=== PATIENT | female | born 1995 | race Caucasian/White ===

== ENCOUNTER 2017-07-10 07:48 | Emergency (ER) | payer OTHER ==
[2017-07-10] MEDS: ACETAMINOPHEN 325 MG TAB PO (08:48)
[2017-07-10 09:03] LABS: ADD MAN DIFF? NO
[2017-07-10 09:29] LABS: BASOPHIL # 0.1 10^3/ul (0.0-0.1); BASOPHILS % 0.5 % (0.0-2.0); EOSINOPHILS # 0.2 10^3/ul (0.0-0.5); EOSINOPHILS % 1.4 % (0.0-7.0); HEMATOCRIT 35.2 % (37.0-47.0); HEMOGLOBIN 10.7 g/dl (12.0-16.0); LYMPHOCYTES # 2.3 10^3/ul (0.8-2.9); LYMPHOCYTES % 20.7 % (15.0-51.0); MEAN CORPUSCULAR HEMOGLOBIN 21.7 pg (29.0-33.0); MEAN CORPUSCULAR HGB CONC 30.4 g/dl (32.0-37.0); MEAN CORPUSCULAR VOLUME 71.4 fl (82.0-101.0); MEAN PLATELET VOLUME 10.1 fl (7.4-10.4); MONOCYTE # 0.7 10^3/ul (0.3-0.9); MONOCYTES % 6.7 % (0.0-11.0); NEUTROPHIL # 7.7 10^3/ul (1.6-7.5); NEUTROPHILS % 70.3 % (39.0-77.0); PLATELET COUNT 397 10^3/UL (140-415); RED BLOOD COUNT 4.93 10^6/ul (4.20-5.40); RED CELL DISTRIBUTION WIDTH 21.8 % (11.5-14.5)
[2017-07-10 09:46] LABS: ADD UMIC YES; UR ASCORBIC ACID NEGATIVE (NEGATIVE); UR BACTERIA FEW /HPF (NONE SEEN); UR BILIRUBIN (Dip) NEGATIVE (NEGATIVE); UR BLOOD (Dip) NEGATIVE (NEGATIVE); UR CLARITY CLOUDY (CLEAR); UR COLOR YELLOW (YELLOW); UR GLUCOSE (Dip) NEGATIVE (NEGATIVE); UR KETONES (Dip) NEGATIVE (NEGATIVE); UR LEUKOCYTE ESTERASE (Dip) NEGATIVE Leu/ul (NEGATIVE); UR MUCUS FEW /HPF (NONE SEEN); UR NITRITE (Dip) NEGATIVE (NEGATIVE); UR RBC 1 /HPF (0-5); UR SPECIFIC GRAVITY (Dip) 1.021 (1.003-1.030); UR SQUAMOUS EPITHELIAL CELL MODERATE /HPF (FEW); UR TOTAL PROTEIN (Dip) NEGATIVE (NEGATIVE); UR UROBILINOGEN (Dip) NEGATIVE (NEGATIVE); UR WBC 7 /HPF (0-5)
== END 2017-07-10 11:01 | disposition home or self-care (01) ==
LOC: FTE 07:48
DX: O26.891 Other specified pregnancy related conditions, first trimester (principal); O99.89 Other specified diseases and conditions complicating pregnancy, childbirth and the puerperium; R10.2 Pelvic and perineal pain; M54.9 Dorsalgia, unspecified; Z3A.09 9 weeks gestation of pregnancy
CPT/HCPCS: 36415; 76801; 81001; 84702; 85025; 86900; 86901; 99284-25

== ENCOUNTER 2017-10-29 14:27 | Outpatient (CLI) | payer OTHER ==
[2017-10-29 15:20] LABS: ADD MAN DIFF? NO
[2017-10-29 15:22] LABS: WHITE BLOOD COUNT 9.5 10^3/ul (4.8-10.8)
[2017-10-29 15:22] LABS: BASOPHIL # 0.1 10^3/ul (0.0-0.1); BASOPHILS % 0.5 % (0.0-2.0); EOSINOPHILS # 0.1 10^3/ul (0.0-0.5); EOSINOPHILS % 1.2 % (0.0-7.0); HEMATOCRIT 29.3 % (37.0-47.0); HEMOGLOBIN 9.2 g/dl (12.0-16.0); LYMPHOCYTES # 2.1 10^3/ul (0.8-2.9); LYMPHOCYTES % 22.4 % (15.0-51.0); MEAN CORPUSCULAR HGB CONC 31.4 g/dl (32.0-37.0); MEAN CORPUSCULAR VOLUME 73.3 fl (82.0-101.0); MEAN PLATELET VOLUME 10.1 fl (7.4-10.4); MONOCYTE # 0.7 10^3/ul (0.3-0.9); MONOCYTES % 7.4 % (0.0-11.0); NEUTROPHIL # 6.4 10^3/ul (1.6-7.5); NEUTROPHILS % 67.9 % (39.0-77.0); PLATELET COUNT 308 10^3/UL (140-415); RED CELL DISTRIBUTION WIDTH 17.2 % (11.5-14.5)
[2017-10-29 15:40] LABS: ADD UMIC YES; UR AMORPHOUS CRYSTAL FEW /HPF (NONE SEEN); UR ASCORBIC ACID NEGATIVE (NEGATIVE); UR BILIRUBIN (Dip) NEGATIVE (NEGATIVE); UR BLOOD (Dip) NEGATIVE (NEGATIVE); UR CLARITY CLOUDY (CLEAR); UR COLOR YELLOW (YELLOW); UR GLUCOSE (Dip) NEGATIVE (NEGATIVE); UR KETONES (Dip) NEGATIVE (NEGATIVE); UR LEUKOCYTE ESTERASE (Dip) TRACE Leu/ul (NEGATIVE); UR MUCUS FEW /HPF (NONE SEEN); UR NITRITE (Dip) NEGATIVE (NEGATIVE); UR RBC 1 /HPF (0-5); UR SPECIFIC GRAVITY (Dip) 1.019 (1.003-1.030); UR SQUAMOUS EPITHELIAL CELL MODERATE /HPF (FEW); UR TOTAL PROTEIN (Dip) NEGATIVE (NEGATIVE); UR UROBILINOGEN (Dip) 1+ mg/dL (NEGATIVE); UR WBC 10 /HPF (0-5)
== END 2017-10-29 16:15 | disposition home or self-care (01) ==
LOC: OBT 14:27 → L-D 14:28 → OBT 16:15
DX: O23.42 Unspecified infection of urinary tract in pregnancy, second trimester (principal); Z3A.24 24 weeks gestation of pregnancy
CPT/HCPCS: 76817; 81001; 85025; 87086

== ENCOUNTER 2017-11-22 23:08 | Emergency (ER) | payer OTHER | END 2017-11-23 03:32 | disposition home or self-care (01) | LOC: FTE 23:08 | DX: O99.89 Other specified diseases and conditions complicating pregnancy, childbirth and the puerperium (principal); R42 Dizziness and giddiness; R51 Headache; Z3A.28 28 weeks gestation of pregnancy | CPT/HCPCS: 93005; 99283-25 ==

== ENCOUNTER 2017-11-23 03:40 | Outpatient (CLI) | payer OTHER ==
[2017-11-23] MEDS: LACTATED RINGER'S 1,000 ML IV ×2 (04:41→06:23)
[2017-11-23 04:57] LABS: ADD UMIC YES; UR ASCORBIC ACID NEGATIVE (NEGATIVE); UR BACTERIA FEW /HPF (NONE SEEN); UR BILIRUBIN (Dip) NEGATIVE (NEGATIVE); UR BLOOD (Dip) NEGATIVE (NEGATIVE); UR CALCIUM OXALATE CRYSTAL FEW /HPF (NONE SEEN); UR CLARITY SLIGHTLY CLOUDY (CLEAR); UR COLOR YELLOW (YELLOW); UR GLUCOSE (Dip) NEGATIVE (NEGATIVE); UR KETONES (Dip) NEGATIVE (NEGATIVE); UR LEUKOCYTE ESTERASE (Dip) TRACE Leu/ul (NEGATIVE); UR MUCUS FEW /HPF (NONE SEEN); UR NITRITE (Dip) NEGATIVE (NEGATIVE); UR RBC 1 /HPF (0-5); UR SPECIFIC GRAVITY (Dip) 1.026 (1.003-1.030); UR SQUAMOUS EPITHELIAL CELL MODERATE /HPF (FEW); UR TOTAL PROTEIN (Dip) NEGATIVE (NEGATIVE); UR UROBILINOGEN (Dip) 1+ mg/dL (NEGATIVE); UR WBC 6 /HPF (0-5)
[2017-11-23] MEDS: HYDROCODONE/APAP (5/325) TAB PO (05:09)
[2017-11-23 05:17] LABS: ADD MAN DIFF? NO
[2017-11-23 05:19] LABS: WHITE BLOOD COUNT 10.7 10^3/ul (4.8-10.8)
[2017-11-23 05:19] LABS: BASOPHIL # 0.1 10^3/ul (0.0-0.1); BASOPHILS % 0.5 % (0.0-2.0); EOSINOPHILS # 0.3 10^3/ul (0.0-0.5); EOSINOPHILS % 2.3 % (0.0-7.0); HEMATOCRIT 28.1 % (37.0-47.0); HEMOGLOBIN 8.6 g/dl (12.0-16.0); LYMPHOCYTES # 2.9 10^3/ul (0.8-2.9); LYMPHOCYTES % 27.3 % (15.0-51.0); MEAN CORPUSCULAR HEMOGLOBIN 22.4 pg (29.0-33.0); MEAN CORPUSCULAR HGB CONC 30.6 g/dl (32.0-37.0); MEAN CORPUSCULAR VOLUME 73.2 fl (82.0-101.0); MEAN PLATELET VOLUME 9.4 fl (7.4-10.4); MONOCYTE # 0.9 10^3/ul (0.3-0.9); MONOCYTES % 8.4 % (0.0-11.0); NEUTROPHIL # 6.5 10^3/ul (1.6-7.5); NEUTROPHILS % 60.6 % (39.0-77.0); PLATELET COUNT 322 10^3/UL (140-415); RED BLOOD COUNT 3.84 10^6/ul (4.20-5.40); RED CELL DISTRIBUTION WIDTH 18.1 % (11.5-14.5)
[2017-11-23 05:32] LABS: ALANINE AMINOTRANSFERASE 25 IU/L (13-69); ALBUMIN 3.3 g/dl (3.3-4.9); ALKALINE PHOSPHATASE 122 IU/L (42-121); ANION GAP 12 (8-16); ASPARTATE AMINO TRANSFERASE 15 IU/L (15-46); BILIRUBIN,INDIRECT 0.4 mg/dl (0-1.1); BILIRUBIN,TOTAL 0.4 mg/dl (0.2-1.3); BLOOD UREA NITROGEN 7 mg/dl (7-20); CALCIUM 8.5 mg/dl (8.4-10.2); CARBON DIOXIDE 25 mmol/L (21-31); CHLORIDE 106 mmol/L (97-110); CREATININE 0.38 mg/dl (0.44-1.00); GLUCOSE 91 mg/dl (70-220); POTASSIUM 3.5 mmol/L (3.5-5.1); SODIUM 139 mmol/L (135-144); TOTAL PROTEIN 6.6 g/dl (6.1-8.1)
== END 2017-11-23 07:45 | disposition home or self-care (01) ==
LOC: OBT 03:40 → L-D 03:40 → OBT 07:45
DX: O26.892 Other specified pregnancy related conditions, second trimester (principal); R51 Headache; R42 Dizziness and giddiness; R06.02 Shortness of breath; O21.0 Mild hyperemesis gravidarum; Z3A.28 28 weeks gestation of pregnancy
CPT/HCPCS: 36415; 76815; 76817; 76818; 80053; 81001; 85025; 96360; 96361

== ENCOUNTER 2018-01-07 19:49 | Outpatient (CLI) | payer OTHER ==
[2018-01-07] MEDS ORDERED: TERBUTALINE 1 ML (20:13)
[2018-01-07] MEDS: TERBUTALINE 1 MG/ML INJ SC (20:17)
[2018-01-07] MEDS: LACTATED RINGER'S 1,000 ML IV (20:20)
[2018-01-07 20:49] LABS: ADD UMIC YES; UR ASCORBIC ACID NEGATIVE (NEGATIVE); UR BACTERIA FEW /HPF (NONE SEEN); UR BILIRUBIN (Dip) NEGATIVE (NEGATIVE); UR BLOOD (Dip) NEGATIVE (NEGATIVE); UR CALCIUM OXALATE CRYSTAL FEW /HPF (NONE SEEN); UR CLARITY CLOUDY (CLEAR); UR COLOR YELLOW (YELLOW); UR GLUCOSE (Dip) NEGATIVE (NEGATIVE); UR KETONES (Dip) 1+ mg/dL (NEGATIVE); UR LEUKOCYTE ESTERASE (Dip) 1+ Leu/ul (NEGATIVE); UR MUCUS MODERATE /HPF (NONE SEEN); UR NITRITE (Dip) NEGATIVE (NEGATIVE); UR RBC 17 /HPF (0-5); UR SPECIFIC GRAVITY (Dip) 1.023 (1.003-1.030); UR SQUAMOUS EPITHELIAL CELL FEW /HPF (FEW); UR TOTAL PROTEIN (Dip) 1+ mg/dl (NEGATIVE); UR UROBILINOGEN (Dip) NEGATIVE (NEGATIVE); UR WBC 15 /HPF (0-5)
[2018-01-07] MEDS ORDERED: LACTATED RINGER'S 1,000 ML IV (22:00)
[2018-01-07] MEDS: CEFTRIAXONE 1 GM/50 ML (PMX) 50 ML IVPB (22:06)
[2018-01-07] MEDS: SOD CHLORIDE 0.9% 1,000 ML IV (22:06)
[2018-01-07] MEDS ORDERED: CARBOPROST 250 MCG INJ IM (23:30)
[2018-01-07] MEDS ORDERED: METHYLERGONOVINE 0.2 MG INJ IM (23:30)
[2018-01-07] MEDS ORDERED: OXYTOCIN 30 UNITS/LR 500 ML IV ×2 (23:30)
[2018-01-07] MEDS ORDERED: CEFAZOLIN 2 GM/50 ML (PMX) 50 ML IV (23:30)
[2018-01-07] MEDS ORDERED: MISOPROSTOL 200 MCG TAB PR (23:30)
[2018-01-07] MEDS: HYDROCODONE/APAP (5/325) TAB PO (23:45)
[2018-01-07] MEDS: NIFEdipine 10 MG CAP PO (23:45)
== END 2018-01-08 00:50 | disposition home or self-care (01) ==
LOC: OBT 19:49 → L-D 19:50
DX: O62.9 Abnormality of forces of labor, unspecified (principal); Z3A.34 34 weeks gestation of pregnancy
CPT/HCPCS: 81001; 96360; 96361; 96368; 96372

== ENCOUNTER 2018-01-18 06:04 | Inpatient (IN) | payer OTHER ==
[2018-01-18] MEDS ORDERED: MISOPROSTOL 200 MCG TAB PR ×2 (06:30→14:00)
[2018-01-18] MEDS ORDERED: CEFAZOLIN 2 GM/50 ML (PMX) 50 ML IV (06:30)
[2018-01-18] MEDS ORDERED: METHYLERGONOVINE 0.2 MG INJ IM ×2 (06:30→14:00)
[2018-01-18] MEDS ORDERED: OXYTOCIN 30 UNITS/LR 500 ML IV ×2 (06:30→14:00)
[2018-01-18] MEDS ORDERED: CARBOPROST 250 MCG INJ IM ×2 (06:30→14:00)
[2018-01-18] MEDS: LACTATED RINGER'S 1,000 ML IV ×3 (06:55→22:01)
[2018-01-18] MEDS ORDERED: EPHEDrine SULFATE 50 MG/5 ML SYG (07:00)
[2018-01-18 07:09] LABS: ADD MAN DIFF? NO
[2018-01-18 07:12] LABS: BASOPHIL # 0.1 10^3/ul (0.0-0.1); BASOPHILS % 0.9 % (0.0-2.0); EOSINOPHILS # 0.1 10^3/ul (0.0-0.5); EOSINOPHILS % 1.6 % (0.0-7.0); HEMATOCRIT 27.4 % (37.0-47.0); LYMPHOCYTES # 2.1 10^3/ul (0.8-2.9); LYMPHOCYTES % 25.7 % (15.0-51.0); MEAN CORPUSCULAR HEMOGLOBIN 20.6 pg (29.0-33.0); MEAN CORPUSCULAR HGB CONC 29.2 g/dl (32.0-37.0); MEAN CORPUSCULAR VOLUME 70.6 fl (82.0-101.0); MEAN PLATELET VOLUME 9.9 fl (7.4-10.4); MONOCYTE # 0.8 10^3/ul (0.3-0.9); MONOCYTES % 9.5 % (0.0-11.0); NEUTROPHIL # 5.1 10^3/ul (1.6-7.5); NEUTROPHILS % 61.8 % (39.0-77.0); PLATELET COUNT 290 10^3/UL (140-415); RED BLOOD COUNT 3.88 10^6/ul (4.20-5.40); RED CELL DISTRIBUTION WIDTH 18.7 % (11.5-14.5)
[2018-01-18 07:12] LABS: WHITE BLOOD COUNT 8.2 10^3/ul (4.8-10.8)
[2018-01-18 07:36] LABS: INR 1.04; PROTIME 13.7 Sec (11.9-14.9); PT RATIO 1.1
[2018-01-18 07:37] LABS: PARTIAL THROMBOPLASTIN TIME 26.1 Sec (25.0-35.0)
[2018-01-18 08:57] LABS: HEPATITIS B SURFACE ANTIGEN NEGATIVE (NEGATIVE)
[2018-01-18] MEDS ORDERED: CITRIC ACID/SODIUM CITRATE 15 ML CUP (09:11)
[2018-01-18] MEDS: CITRIC ACID/SODIUM CITRATE 15 ML CUP PO (09:14)
[2018-01-18] MEDS ORDERED: METOCLOPRAMIDE 10 MG INJ (09:15)
[2018-01-18] MEDS ORDERED: ONDANSETRON 4 MG INJ (09:15)
[2018-01-18] MEDS ORDERED: BUPIVACAINE 0.75%/DEXT (SPINAL) 2 ML INJ (09:15)
[2018-01-18] MEDS ORDERED: morphine SULFATE/PF (10 MG/10 ML) INJ (09:15)
[2018-01-18] MEDS ORDERED: KETOROLAC 30 MG INJ (09:15)
[2018-01-18] MEDS ORDERED: MIDAZOLAM 1 MG/ML 2 ML INJ (09:33)
[2018-01-18] MEDS ORDERED: PHENYLephrine (100 MCG/ML) 5ML SYG (09:34)
[2018-01-18] MEDS ORDERED: morphine 2 MG INJ IV ×3 (11:00)
[2018-01-18] MEDS ORDERED: morphine (1 MG/ML) 10ML SYRINGE IV ×3 (11:00)
[2018-01-18] MEDS ORDERED: ONDANSETRON 4 MG INJ IV (11:00)
[2018-01-18] MEDS ORDERED: DIPHENHYDRAMINE 50 MG INJ IV ×2 (11:00)
[2018-01-18] MEDS ORDERED: NALOXONE (0.4 MG/ML) INJ IV (11:00)
[2018-01-18] MEDS: OXYTOCIN 30 UNITS/LR 500 ML IV ×6 (12:35→21:33)
[2018-01-18] MEDS: KETOROLAC 30 MG INJ IV ×2 (13:05→21:15)
[2018-01-18] MEDS ORDERED: OXYCODONE/ACETAMINOPHEN (5/325) TAB PO ×2 (14:00)
[2018-01-18] MEDS: ONDANSETRON 4 MG INJ IV (14:59)
[2018-01-18 15:19] LABS: RAPID PLASMA REAGIN NONREACTIVE (NR)
[2018-01-18] MEDS: CEFAZOLIN 1 GM/50 ML (PMX) 50 ML IVPB (19:17)
[2018-01-18] MEDS: SENNA/DOCUSATE NA (8.6MG/50MG) TAB PO (21:00)
[2018-01-19] MEDS: OXYTOCIN 30 UNITS/LR 500 ML IV ×6 (01:33→23:18)
[2018-01-19] MEDS: KETOROLAC 30 MG INJ IV ×2 (03:37→09:09)
[2018-01-19] MEDS: LACTATED RINGER'S 1,000 ML IV ×3 (05:45→23:18)
[2018-01-19 08:08] LABS: WHITE BLOOD COUNT 9.4 10^3/ul (4.8-10.8)
[2018-01-19 08:08] LABS: ABNORMAL IP MESSAGE 1; HEMATOCRIT 22.5 % (37.0-47.0); MEAN CORPUSCULAR HEMOGLOBIN 20.8 pg (29.0-33.0); MEAN CORPUSCULAR HGB CONC 28.9 g/dl (32.0-37.0); MEAN CORPUSCULAR VOLUME 71.9 fl (82.0-101.0); PLATELET COUNT 225 10^3/UL (140-415); RED BLOOD COUNT 3.13 10^6/ul (4.20-5.40); RED CELL DISTRIBUTION WIDTH 18.5 % (11.5-14.5)
[2018-01-19 08:12] LABS: HEMOGLOBIN 6.5 g/dl (12.0-16.0); POSITIVE DIFF @See below
[2018-01-19 08:16] LABS: BASOPHIL # 0.1 10^3/ul (0.0-0.1); BASOPHILS % 0.5 % (0.0-2.0); EOSINOPHILS # 0.1 10^3/ul (0.0-0.5); EOSINOPHILS % 1.2 % (0.0-7.0); LYMPHOCYTES # 1.7 10^3/ul (0.8-2.9); LYMPHOCYTES % 18.3 % (15.0-51.0); MONOCYTE # 0.8 10^3/ul (0.3-0.9); NEUTROPHIL # 6.7 10^3/ul (1.6-7.5); NEUTROPHILS % 71.6 % (39.0-77.0)
[2018-01-19 08:17] LABS: ADD MAN DIFF? NO
[2018-01-19] MEDS: SENNA/DOCUSATE NA (8.6MG/50MG) TAB PO ×2 (09:09→21:57)
[2018-01-19 09:45] LABS: ANISOCYTOSIS 1+ (0-0); BAND NEUTROPHILS #M 0.2 10^3/ul (0.0-0.6); BAND NEUTROPHILS % (M) 3 % (0-4); BASOPHILS % (M) 1 % (0-2); ELLIPTO 1+ (0-0); EOSINOPHILS % (M) 1 % (0-7); GIANT THROMBO% (M) 1 % (0-0); LYMPHOCYTES #M 1.5 10^3/ul (0.8-2.9); LYMPHOCYTES % (M) 16 % (15-51); MICROCYTOSIS 1+ (0-0); MONOCYTES % (M) 1 % (0-11); PLATELET ESTIMATE NORMAL; POIKILOCYTOSIS 1+ (0-0); POLYCHROMASIA 2+ (0-0); SEG NEUT #M 7.4 10^3/ul (1.6-7.5); SEGMENTED NEUTROPHILS (M) % 78 % (39-77); SMUDGE%M 9 % (0-0)
[2018-01-19 15:01] LABS: IMMEDIATE SPIN CROSSMATCH 1 3
[2018-01-19] MEDS: HYDROCODONE/APAP (5/325) TAB PO ×2 (15:34→21:57)
[2018-01-19] MEDS: IBUPROFEN 600 MG TAB PO ×3 (17:22→23:45)
[2018-01-19] MEDS: LANOLIN 7 GM TUBE TOP (21:58)
[2018-01-20] MEDS: HYDROCODONE/APAP (5/325) TAB PO ×3 (03:47→20:23)
[2018-01-20] MEDS: OXYTOCIN 30 UNITS/LR 500 ML IV ×2 (04:50→05:33)
[2018-01-20] MEDS: IBUPROFEN 600 MG TAB PO ×4 (05:42→23:55)
[2018-01-20] MEDS: LACTATED RINGER'S 1,000 ML IV (05:56)
[2018-01-20] MEDS: SENNA/DOCUSATE NA (8.6MG/50MG) TAB PO ×2 (09:19→21:00)
[2018-01-20 10:14] LABS: ADD MAN DIFF? NO
[2018-01-20 10:17] LABS: BASOPHIL # 0.1 10^3/ul (0.0-0.1); BASOPHILS % 0.6 % (0.0-2.0); EOSINOPHILS # 0.2 10^3/ul (0.0-0.5); EOSINOPHILS % 2.1 % (0.0-7.0); HEMATOCRIT 29.2 % (37.0-47.0); HEMOGLOBIN 8.8 g/dl (12.0-16.0); LYMPHOCYTES # 2.2 10^3/ul (0.8-2.9); LYMPHOCYTES % 21.3 % (15.0-51.0); MEAN CORPUSCULAR HEMOGLOBIN 22.4 pg (29.0-33.0); MEAN CORPUSCULAR HGB CONC 30.1 g/dl (32.0-37.0); MEAN CORPUSCULAR VOLUME 74.5 fl (82.0-101.0); MONOCYTE # 0.9 10^3/ul (0.3-0.9); MONOCYTES % 8.5 % (0.0-11.0); NEUTROPHILS % 66.9 % (39.0-77.0); PLATELET COUNT 222 10^3/UL (140-415); RED BLOOD COUNT 3.92 10^6/ul (4.20-5.40); RED CELL DISTRIBUTION WIDTH 19.5 % (11.5-14.5)
[2018-01-20 10:17] LABS: WHITE BLOOD COUNT 10.5 10^3/ul (4.8-10.8)
[2018-01-20] MEDS: NA PHOSPHATE/BIPHOS 133 ML ENEMA PR (10:30)
[2018-01-21] MEDS: IBUPROFEN 600 MG TAB PO ×2 (05:45→11:47)
[2018-01-21] MEDS: DIPHTH/TET/ACEL PERTUSS (ADULT) 0.5 ML VIAL IM* (09:00)
[2018-01-21] MEDS: SENNA/DOCUSATE NA (8.6MG/50MG) TAB PO (09:10)
== END 2018-01-21 17:10 | disposition home or self-care (01) | DRG 766 ==
LOC: L-D 06:04 → PP1 14:06
PROVIDERS: Obstetrics & Gynecology
PROC: 10D00Z1 Extraction of Products of Conception, Low, Open Approach (ICD-10-PCS; principal; 2018-01-18 09:00)
PROC: 30233N1 Transfusion of Nonautologous Red Blood Cells into Peripheral Vein, Percutaneous Approach (ICD-10-PCS; 2018-01-18 09:00)
DX: O34.29 Maternal care due to uterine scar from other previous surgery (principal); O99.02 Anemia complicating childbirth; D50.9 Iron deficiency anemia, unspecified; Z37.0 Single live birth; Z3A.36 36 weeks gestation of pregnancy
CPT/HCPCS: 36430; 85025; 85610; 85730; 86592; 86850; 86900; 86901; 86920; 87340; 99464